=== PATIENT | male | born 1990 | race African-American/Black ===

== ENCOUNTER 2017-04-12 23:56 | Emergency (ER) | payer BC, MEDICAID ==
[~2017-04-12] VITALS: Ht 175.3 cm; Wt 72.7 kg
[~2017-04-12 23:56] MED LIST: CEPHALEXIN500 M1 PO; NEXIUM 40MG40 MG PO; NORCO 325 MG-51 TAB PO; PHENERGAN 25 TA25 MG PO; PHENERGAN25 MG RC; ULTRAM 50MG TAB50 MG PO; ZOFRAN ODT8 MG PO; ZOFRAN8 MG PO
[2017-04-13] VITALS: TEMP 98.9
[2017-04-13 01:27] VITALS: BP 133/92; PULSE 74
== END 2017-04-13 01:54 | disposition home or self-care (01) ==
LOC: COL.ER 23:56
DX: S09.90XA Unspecified injury of head, initial encounter (principal); Z21 Asymptomatic human immunodeficiency virus [HIV] infection status; S60.511A Abrasion of right hand, initial encounter; Y04.0XXA Assault by unarmed brawl or fight, initial encounter; Y92.414 Local residential or business street as the place of occurrence of the external cause; S60.221A Contusion of right hand, initial encounter

== ENCOUNTER 2017-08-21 07:28 | Emergency (ER) | payer SELFPAY ==
[~2017-08-21] VITALS: Ht 172.7 cm; Wt 71.4 kg
[2017-08-21 07:34] VITALS: BP 142/93; TEMP 99
[2017-08-21] MEDS ORDERED: CYCLOGYL 1%2 ML/BOT OP (08:46)
[2017-08-21] MEDS ORDERED: NAPROXEN 3375 MG/TAB PO (08:46)
[2017-08-21] MEDS ORDERED: NORCO 325 MG-51 TAB PO (08:46)
[2017-08-21 08:57] VITALS: PULSE 80
== END 2017-08-21 08:59 | disposition home or self-care (01) ==
LOC: COL.ER 07:28
DX: H20.9 Unspecified iridocyclitis (principal); W50.0XXA Accidental hit or strike by another person, initial encounter; Y93.67 Activity, basketball

== ENCOUNTER 2017-10-31 05:09 | Emergency (ER) | payer SELFPAY ==
[~2017-10-31] VITALS: Ht 172.7 cm; Wt 75.0 kg
[~2017-10-31 05:09] MED LIST changes: +CYCLOGYL 1%2 ML/BOT OP; +NAPROXEN 3375 MG/TAB PO
[2017-10-31 06:52] LABS: BASO % 0.3 % (0.0-2.0); EOS # 0.1 (0.0-0.7); EOS % 2.1 % (0-4.0); GRAN # 4.1 (1.4-6.5); GRAN % 62.6 % (42.2-75.2); HEMATOCRIT 49.2 % (42.0-52.0); HEMOGLOBIN 16.7 g/dl (13.5-18.0); LYMPH # 1.7 (1.2-3.4); LYMPH % 25.1 % (20.0-51.0); MEAN CELL VOLUME 90 fl (80.0-100.0); MEAN CORPUSCULAR HEMOGLOBIN 30 pg (27.0-31.0); MEAN CORPUSCULAR HGB CONC 34 g/dl (33.0-37.0); MEAN PLATELET VOLUME 9.4 fl (7.4-10.4); MONO # 0.6 (0.1-0.6); MONO % 8.8 % (1.7-9.3); PLATELET COUNT 242 K/mm3 (130-400); RED BLOOD COUNT 5.49 M/mm3 (4.20-5.60); REDCELL DISTRIBUTION WIDTH-CV 12.3 % (11.5-14.5)
[2017-10-31 07:02] LABS: ALBUMIN 4.3 gm/dL (3.5-5.0); BILIRUBIN,TOTAL 0.3 mg/dL (0.0-1.0); C-REACTIVE PROTEIN 1.6 mg/dL (0.0-0.9); CALCIUM 9.2 mg/dL (8.4-10.2); CREATININE, serum 0.81 mg/dL (0.66-1.25); MAGNESIUM 1.8 mg/dL (1.6-2.3); POTASSIUM 4.6 mmol/L (3.4-5.0)
[2017-10-31] MEDS ORDERED: AMOXICILLIN 8751 TAB PO (08:01)
[2017-10-31] MEDS ORDERED: PHENERGAN 25 TA25 MG PO (08:02)
[2017-10-31 09:15] VITALS: BP 145/96; PULSE 76; TEMP 97.6
== END 2017-10-31 09:24 | disposition home or self-care (01) ==
LOC: COL.ER 05:09
PROVIDERS: Emergency Medicine
DX: J03.90 Acute tonsillitis, unspecified (principal); Z21 Asymptomatic human immunodeficiency virus [HIV] infection status
CPT/HCPCS: J7030

== ENCOUNTER 2018-01-17 04:53 | Emergency (ER) | payer SELFPAY ==
[~2018-01-17 04:53] MED LIST changes: +AMOXICILLIN 8751 TAB PO
[2018-01-17 04:57] VITALS: TEMP 97.9
[2018-01-17] MEDS ORDERED: EPIPEN 2-PAK1 MG/ML IM (05:19)
[2018-01-17] MEDS ORDERED: MEDROL 4MG DOSPA4 MG PO (05:19)
[2018-01-17 07:12] VITALS: BP 128/84; PULSE 69
== END 2018-01-17 08:31 | disposition home or self-care (01) ==
LOC: COL.ER 04:53
DX: L50.9 Urticaria, unspecified (principal); Z21 Asymptomatic human immunodeficiency virus [HIV] infection status
CPT/HCPCS: J0171; J1200; J7512

== ENCOUNTER 2018-01-18 00:40 | Emergency (ER) | payer OTHER ==
[~2018-01-18] VITALS: Ht 170.2 cm; Wt 70.5 kg
[~2018-01-18 00:40] MED LIST changes: +EPIPEN 2-PAK1 MG/ML IM; +MEDROL 4MG DOSPA4 MG PO
[2018-01-18 00:47] VITALS: BP 157/91; PULSE 82; TEMP 98
== END 2018-01-18 01:49 | disposition home or self-care (01) ==
LOC: COL.ER 00:40
DX: L50.9 Urticaria, unspecified (principal); Z79.52 Long term (current) use of systemic steroids; Z21 Asymptomatic human immunodeficiency virus [HIV] infection status

== ENCOUNTER 2018-06-04 22:11 | Emergency (ER) | payer SELFPAY ==
[~2018-06-04] VITALS: Ht 170.2 cm; Wt 75.9 kg
[2018-06-04 22:23] VITALS: TEMP 98.2
[2018-06-04] MEDS ORDERED: HIV MEDS (23:36)
[2018-06-05] MEDS ORDERED: PREDNISONE20 MG PO (00:46)
[2018-06-05 01:22] VITALS: BP 134/84; PULSE 75
== END 2018-06-05 01:22 | disposition home or self-care (01) ==
LOC: COL.ER 22:11
DX: L50.9 Urticaria, unspecified (principal); Z21 Asymptomatic human immunodeficiency virus [HIV] infection status
CPT/HCPCS: J2930

== ENCOUNTER 2019-11-02 20:24 | Emergency (ER) | payer BC ==
[~2019-11-02] VITALS: Ht 172.7 cm; Wt 72.7 kg
[~2019-11-02 20:24] MED LIST changes: +HIV MEDS; +PREDNISONE20 MG PO
[2019-11-02 20:39] VITALS: TEMP 99.4
[2019-11-02] MEDS ORDERED: GENVOYA TABLET1 EACH PO (23:30)
[2019-11-02] MEDS ORDERED: TAMIFLU 75MG75 MG PO (23:41)
[2019-11-03 00:46] VITALS: BP 135/86; PULSE 93
== END 2019-11-03 00:46 | disposition home or self-care (01) ==
LOC: COL.ER 20:24
DX: J10.1 Influenza due to other identified influenza virus with other respiratory manifestations (principal); Z21 Asymptomatic human immunodeficiency virus [HIV] infection status

== ENCOUNTER 2020-08-30 23:35 | Emergency (ER) | payer BC ==
[~2020-08-30] VITALS: Ht 172.7 cm; Wt 77.3 kg
[~2020-08-30 23:35] MED LIST changes: +GENVOYA TABLET1 EACH PO; +TAMIFLU 75MG75 MG PO
[2020-08-30] MEDS ORDERED: BIKTARVY 50-201 EACH PO (23:47)
[2020-08-31 00:33] LABS: HEMATOCRIT 51.4 % (42.0-52.0); HEMOGLOBIN 17.9 g/dl (13.5-18.0); MEAN CELL VOLUME 87 fl (80.0-100.0); MEAN CORPUSCULAR HEMOGLOBIN 30 pg (27.0-31.0); MEAN CORPUSCULAR HGB CONC 35 g/dl (33.0-37.0); MEAN PLATELET VOLUME 9.3 fl (7.4-10.4); PLATELET COUNT 230 K/mm3 (130-400); RED BLOOD COUNT 5.89 M/mm3 (4.20-5.60); REDCELL DISTRIBUTION WIDTH-CV 13.2 % (11.5-14.5)
[2020-08-31 00:54] LABS: ALBUMIN 4.2 gm/dL (3.5-5.0); BILIRUBIN,TOTAL 0.5 mg/dL (0.0-1.0); CALCIUM 8.9 mg/dL (8.4-10.2); CREATININE, serum 0.96 (0.66-1.25); POTASSIUM 4.2 mmol/L (3.4-5.0); TOTAL PROTEIN 8.1 gm/dL (6.4-8.2)
[2020-08-31 00:58] LABS: BAND 35 % (0-10); EOSINOPHIL 1 % (0-4); LYMPHOCYTE 5 % (20.0-51.0); NEUTROPHILS 54 % (42.0-75.2); PLATELET ESTIMATE NORMAL (NORMAL)
[2020-08-31 01:18] LABS: COLLECTION METHOD CLEAN CATCH
[2020-08-31 01:24] LABS: MUCOUS Present /lpf; PH 5 (5-8); SQUAMOUS EPITHELIAL None Seen /hpf; URINE APPEARANCE Clear; URINE BACTERIA None Seen /hpf; URINE BILIRUBIN Negative (NEGATIVE); URINE BLOOD 1+ (NEGATIVE); URINE COLOR Yellow; URINE GLUCOSE Negative (NEGATIVE); URINE KETONE Negative (NEGATIVE); URINE LEUKOCYTE ESTERASE Negative (NEGATIVE); URINE NITRATE Negative (NEGATIVE); URINE PROTEIN(semi-quant) 2+ (NEGATIVE); URINE RBC 0-2 /hpf; URINE UROBILINOGEN Negative (NEGATIVE)
[2020-08-31] MEDS ORDERED: BACTRIM DS 8001 TAB PO (03:31)
[2020-08-31 03:51] VITALS: BP 125/81; PULSE 93; TEMP 98
== END 2020-08-31 04:12 | disposition home or self-care (01) ==
LOC: COL.ER 23:35
PROVIDERS: Nurse Practitioner Primary Care
DX: R10.30 Lower abdominal pain, unspecified (principal)
CPT/HCPCS: J1885; J2405; Q9967

== ENCOUNTER 2020-11-16 21:15 | Emergency (ER) | payer BC ==
[~2020-11-16] VITALS: Ht 172.7 cm; Wt 77.3 kg
[~2020-11-16 21:15] MED LIST changes: +BACTRIM DS 8001 TAB PO; +BIKTARVY 50-201 EACH PO
[2020-11-16 21:36] VITALS: TEMP 98.7
[2020-11-16 23:55] VITALS: BP 124/76; PULSE 82
[2020-11-18 10:36] LABS: COLLECTION METHOD CLEAN CATCH
[2020-11-18 11:44] LABS: ALANINE AMINOTRANSFERASE 29 U/L (4-49); ALBUMIN 4.6 gm/dL (3.5-5.0); ALKALINE PHOSPHATASE 72 U/L (50-136); ANION GAP 11 mmol/L (7-16); AST,SGOT 35 U/L (15-37); BILIRUBIN,TOTAL 0.4 mg/dL (0.0-1.0); BLOOD UREA NITROGEN 16 mg/dL (9-20); C-REACTIVE PROTEIN < 0.5 mg/dL (0.0-0.9); CARBON DIOXIDE 24 mmol/L (22-30); CHLORIDE 106 mmol/L (98-107); CREATININE, serum 0.91 (0.66-1.25); GLUCOSE 124 mg/dL (74-106); LIPASE 141 U/L (23-300); POTASSIUM 4.2 mmol/L (3.4-5.0); SODIUM 141 mmol/L (137-145); TOTAL PROTEIN 8.7 gm/dL (6.4-8.2)
[2020-11-18 11:46] LABS: PH 5 (5-8); URINE APPEARANCE Clear; URINE BILIRUBIN Negative (NEGATIVE); URINE COLOR Yellow; URINE GLUCOSE Negative (NEGATIVE); URINE KETONE Negative (NEGATIVE); URINE NITRATE Negative (NEGATIVE); URINE PROTEIN(semi-quant) 1+ (NEGATIVE)
[2020-11-18 11:47] LABS: MUCOUS Present /lpf; SQUAMOUS EPITHELIAL 0-2 /hpf; URINE BACTERIA None Seen /hpf; URINE BLOOD Negative (NEGATIVE); URINE LEUKOCYTE ESTERASE Negative (NEGATIVE); URINE RBC 0-2 /hpf
[2020-11-18 16:55] LABS: BASO % 0.2 % (0.0-2.0); EOS # 0.2 (0.0-0.7); EOS % 1.6 % (0-4.0); GRAN # 5.7 (1.4-6.5); GRAN % 60.3 % (42.2-75.2); HEMATOCRIT 51.7 % (42.0-52.0); HEMOGLOBIN 17.8 g/dl (13.5-18.0); LYMPH # 2.8 (1.2-3.4); LYMPH % 29.7 % (20.0-51.0); MEAN CELL VOLUME 87 fl (80.0-100.0); MEAN CORPUSCULAR HEMOGLOBIN 30 pg (27.0-31.0); MEAN CORPUSCULAR HGB CONC 34 g/dl (33.0-37.0); MEAN PLATELET VOLUME 9.4 fl (7.4-10.4); MONO # 0.7 (0.1-0.6); MONO % 7.8 % (1.7-9.3); PLATELET COUNT 336 K/mm3 (130-400); RED BLOOD COUNT 5.93 M/mm3 (4.20-5.60); REDCELL DISTRIBUTION WIDTH-CV 12.3 % (11.5-14.5)
== END 2020-11-17 23:55 | disposition home or self-care (01) ==
LOC: COL.ER 21:15
PROVIDERS: Nurse Practitioner
DX: R10.13 Epigastric pain (principal); R07.9 Chest pain, unspecified; R11.2 Nausea with vomiting, unspecified
CPT/HCPCS: J1170; J2405; J7030; Q9967